=== PATIENT | male | born 1970 | race Caucasian/White ===

== ENCOUNTER 2023-03-15 09:19 | Outpatient (CLI) | payer OTHER, SELFPAY ==
--- NOTE | 2023-03-15 09:15 | CRLHL7_ITS ---
For Patients: As a result of the Century Cures Act, medical imaging exams and procedure reports are released immediately into your electronic medical record. You may view this report before your referring provider. If you have questions, please contact your health care provider. INDICATION: Lumbar stenosis. COMPARISON: None. TECHNIQUE: Sagittal T1, T2, and STIR sequences. Axial T1 and T2 weighted sequences. FINDINGS: Trace degenerative retrolisthesis of L3 on L4 measures approximately 4 mm. Otherwise, normal alignment. No fractures. No vertebral body loss of height. Postoperative changes of laminectomies at L3-4 and L4-5. Edema and likely granulation tissue within the posterior soft tissues of the operative bed. No suspicious osseous lesions. Normal conus terminates at L1. T12-L1: No spinal canal or neural foraminal narrowing. L1-2: No spinal canal or neural foraminal narrowing. L2-3: No spinal canal or neural foraminal narrowing. L3-4: Grade 1 retrolisthesis. Disc degeneration and posterior disc bulge. [id number] narrowing of spinal canal. Moderate right neural foraminal narrowing. No narrowing of the left neural foramen. Mild facet arthropathy. L4-5: Postoperative changes. No narrowing of the spinal canal. Facet arthropathy contributes to mild narrowing of the left neural foramen. No narrowing of the right neural foramen. L5-S1: Diffuse disc bulge. No narrowing of spinal canal. No impingement of the traversing S1 nerve roots. Moderate to severe right and mild left neural foraminal narrowing. Potential impingement of the exiting right L5 nerve root. Mild facet arthropathy. Degenerative changes of the SI joints. IMPRESSION: 1. Trace degenerative retrolisthesis of L3 on L4. Otherwise normal alignment. No fractures 2. Postop changes of laminectomies at L3-4 and L4-5. Edema and likely granulation tissue within the posterior soft tissues of the operative bed. 3. At L3-4 mild to moderate narrowing of the spinal canal. Moderate narrowing of the right neuroforamen. 4. At L4-5, mild narrowing of the left neuroforamen. 5. At L5-S1, moderate to severe right neural foraminal narrowing. Potential impingement of the exiting right L5 nerve root Dictated by Keith Talbot MD @ 03/15/2023 11:23:49 AM (Electronically Signed)
== END 2023-03-15 09:20 | disposition home or self-care (01) ==
LOC: MRI 09:21
PROVIDERS: PCP Family Medicine; Visit Provider Specialist
DX: M48.062 Spinal stenosis, lumbar region with neurogenic claudication (principal); M51.26 Other intervertebral disc displacement, lumbar region; Z48.89 Encounter for other specified surgical aftercare
CPT/HCPCS: 72148